=== PATIENT | female | born 1995 | race African-American/Black ===

== ENCOUNTER 2019-11-27 07:59 | Emergency (ER) | payer MEDICAID ==
[~2019-11-27] VITALS: Ht 170.2 cm; Wt 63.5 kg
[2019-11-27 08:01] VITALS: BP 136/85
--- NOTE | 2019-11-27 08:10 | NUR ---
ED Nurse Note: Patient presents to ER due to vaginal irritation, states "no pain" with yellow thick discharge with foul odor. Reports no urinary problem. Reports no fever or chills. Patient awake, alert, oriented x 4. Regular, unlabored breathing noted. Urine sample collected and sent. Bed in lowest position.
--- NOTE | 2019-11-27 08:15 | Emergency Room Report ---
History of Present Illness General Chief Complaint: Female Urogenital Problems Source: Patient Present Illness HPI Disclaimer: Please note that this report is being documented using DRAGON technology. This can lead to erroneous entry secondary to incorrect interpretation by the dictating instrument. HPI: 24-year-old female presents for evaluation of pelvic discomfort. Patient notes several days of generalized discomfort, burning with urination and thick white vaginal discharge. Reports recent sexual contact multiple partners though use barrier contraception in all occasions. Denies fever, chills, abdominal pain, nausea, vomiting, diarrhea or flank pain. LMP was October 17 PMH: Denies PSH: Denies Allergies: Denies Social Hx: Denies drug or alcohol abuse Allergies: Coded Allergies: No Known Allergies (Unverified , 11/27/19) COVID-19 Screening Contact w/high risk pt: No Recent Travel to affected area: No Experienced COVID-19 symptoms?: No COVID-19 Testing performed LINK TRAINER: No Patient History Last Menstrual Period: 10/20/19 Now: No Nursing Documentation-PMH Past Medical History: No History, Except For Review of Systems All Other Systems: limited Physical Exam Vital Signs Date Time Temp Pulse Resp B/P (MAP) Pulse Ox O2 Delivery O2 Flow Rate FiO2 11/27/19 08:01 98.6 71 19 136/85 (102) 97 Room Air General: Awake and alert, no acute distress HEENT: NC/AT. EOMI. Resp: Normal work of breathing Abdomen: Soft, nontender, nondistended : Normal-appearing external genitalia. Pain with speculum insertion and bimanual exam but no adnexal tenderness. Thick white vaginal discharge present Skin: Intact. No abrasions, laceration or rash over the exposed skin MSK: Normal tone and bulk. Moving all extremities. No obvious deformity. Neuro: Awake and alert. Mentating appropriately Medical Decision Making Diagnostic Impression: Primary Impression: Cervicitis Additional Impression: PID (acute pelvic inflammatory disease) ER Course 24-year-old female presents for evaluation of vaginal discharge and discomfort. Differential includes not limited to UTI, cervicitis, candidal infection, PID. Patient had significant tenderness on pelvic exam but no adnexal tenderness. She is afebrile and otherwise stable vital signs. hCG negative. Urinalysis shows positive leukocyte esterase and white blood cells but few bacteria many squamous cells. Wet mount does not show signs of BV, trichomonas or yeast. There are many white cells on wet mount as well. Patient be treated for PID with intramuscular ceftriaxone and oral doxycycline here and continued on doxycycline. She was instructed to abstain from sexual intercourse for a minimum of 2 weeks and have all her sexual partners tested as well. She is to follow-up with her TUB PULLER at her already scheduled appointment in 2 days. Discussed reasons to return to the emergency department. She understands and agrees with treatment plan. Laboratory Tests Test 11/27/19 08:07 Urine Color Pale yellow Urine Appearance Clear Urine pH 6.5 (4.5-8.0) Urine Specific [place] 1.015 (1.005-1.035) Urine Protein Negative (NEGATIVE) Urine Glucose (UA) Negative (NEGATIVE) Urine Ketones Negative (NEGATIVE) Urine Blood 1+ (NEGATIVE) H Urine Nitrite Negative (NEGATIVE) Urine Bilirubin Negative (NEGATIVE) Urine Urobilinogen 1 MG/DL (0.0-1.0) H Urine Leukocyte Esterase 3+ (NEGATIVE) H Urine RBC 0-2 /HPF (0 - 2) Urine WBC 5-10 /HPF (0 - 2) H Urine Squamous Epithelial Cells Moderate /LPF (NONE/OCC) H Urine Bacteria Few /HPF (NONE) Urine HCG, Qualitative Negative (NEGATIVE) Microbiology Date/Time Source Procedure Growth Status 11/27/19 08:20 Vaginal Wet Prep - Final Complete Last Vital Signs Date Time Temp Pulse Resp B/P (MAP) Pulse Ox O2 Delivery O2 Flow Rate FiO2 11/27/19 08:01 98.6 71 19 136/85 (102) 97 Room Air Disposition: HOME, SELF-CARE Condition: Stable Scripts Doxycycline Monohydrate* (DOXYCYCLINE MONOHYDRATE*) 100 Mg Capsule 100 MG ORAL TWICE A DAY for 14 Days, #28 CAP 0 Refills Prov: Jaime Woodruff MD 11/27/19 Jaime Woodruff MD Nov 27, 2019 08:15
--- NOTE | 2019-11-27 08:23 | NUR ---
ED Nurse Note: Pelvic exam performed by Dr. Woodruff. RN stayed in the room during the procedure. Patient tolerated the procedure with minimal discomfort. Provided privacy.
[2019-11-27 08:57] LABS: APPEARANCE,URINE CLEAR; BILIRUBIN, URINE NEGATIVE (NEGATIVE); COLOR,URINE PALE YELLOW; GLUCOSE, URINE (UA) NEGATIVE (NEGATIVE); KETONES,URINE NEGATIVE (NEGATIVE); LEUKOCYTE ESTERASE ,URINE 3+ (NEGATIVE); NITRITE,URINE NEGATIVE (NEGATIVE); PH,URINE 6.5 (4.5-8.0); PROTEIN,URINE NEGATIVE (NEGATIVE); UROBILINOGEN,URINE 1 MG/DL (0.0-1.0)
[2019-11-27] MEDS ORDERED: DOXYCYCLINE MO100 MG ORAL (09:13)
[2019-11-27] MEDS ORDERED: Lidocaine 1% MPF 10mg/ml 5ml INJ ONE (09:15)
[2019-11-27] MEDS ORDERED: Doxycycline Monohydrate 100mg ORAL ONE (09:15)
[2019-11-27 09:43] VITALS: BP 108/66
--- NOTE | 2019-11-27 09:43 | NUR ---
ED Nurse Note: Patient is being discharged from medical care. Rocephin IM injection administered to right gluteal eva and patient tolerated the procedure wtihout difficutly. Patient awake, alert, oriented x4. Regular, unlabored breathing noted. D/C instruction given and patient verbalized understanding of it. Patient ambulated out with steady gait with all her belongings.
[2019-11-30] MEDS ORDERED: DOXYCYCLINE MO100 MG ORAL (06:17)
== END 2019-11-27 09:43 | disposition home or self-care (01) ==
LOC: EMR 08:21
DX: N72 Inflammatory disease of cervix uteri (principal); N73.9 Female pelvic inflammatory disease, unspecified
CPT/HCPCS: 81003; 81025; 87210; 96372; J0696; Z7502; 99283

== ENCOUNTER 2020-01-01 09:04 | Emergency (ER) | payer MEDICAID ==
[~2020-01-01] VITALS: Ht 170.2 cm; Wt 59.0 kg
[~2020-01-01 09:04] MED LIST: DOXYCYCLINE MO100 MG ORAL
[2020-01-01 09:25] VITALS: BP 117/68
--- NOTE | 2020-01-01 09:26 | NUR ---
ED Nurse Note: patient walked in to for check up. pt has vaginal discharge and odor for 2-3 days. VSS at this time
[2020-01-01] MEDS ORDERED: Lidocaine 1% MPF 10mg/ml 5ml INJ ONE (09:30)
[2020-01-01] MEDS ORDERED: Azithromycin 250mg tab ORAL ONE (09:30)
--- NOTE | 2020-01-01 09:30 | NUR ---
ED Nurse Note: urine sent
[2020-01-01 10:14] VITALS: BP 117/68
--- NOTE | 2020-01-01 10:14 | NUR ---
ED Nurse Note: Pt cleared by health care Provider for discharge. DC instructions/prescription was given and explained to pt and verbalized understanding of teachings. All medical deviecs such as ID band removed. Pt is AAO x4, ambulatory and left with all personal belongings.
--- NOTE | 2020-01-01 13:34 | Emergency Room Report ---
History of Present Illness General Chief Complaint: Female Urogenital Problems Source: Patient Present Illness HPI 24-year-old female presents the ED for vaginal discharge. Started about 3 days ago. States she has had recent unprotected sex. Denies dysuria. Denies flank pain. Denies fevers or chills. No other aggravating relieving factors. Denies any other associated symptoms Allergies: Coded Allergies: No Known Allergies (Unverified , 11/27/19) COVID-19 Screening Contact w/high risk pt: No Recent Travel to affected area: No Experienced COVID-19 symptoms?: No COVID-19 Testing performed TAILOR MEN'S READY TO WEAR: No Patient History Past Medical History: none Past Surgical History: none Pertinent Family History: none Social History: Denies: smoking, alcohol use, drug use Now: No Immunizations: UTD Reviewed Nursing Documentation: PMH: Agreed; PSxH: Agreed Nursing Documentation-PMH Past Medical History: No Stated History Review of Systems All Other Systems: negative except mentioned in HPI Physical Exam Vital Signs Date Time Temp Pulse Resp B/P (MAP) Pulse Ox O2 Delivery O2 Flow Rate FiO2 01/01/20 09:11 97.5 82 18 117/68 (84) 98 Room Air Sp02 EP Interpretation: reviewed, normal General Appearance: no apparent distress, alert, GCS 15, non-toxic Head: normocephalic, atraumatic Eyes: bilateral eye normal inspection, bilateral eye PERRL ENT: hearing grossly normal, normal pharynx, no angioedema, normal voice Neck: full range of motion, supple/symm/no masses Respiratory: chest non-tender, lungs clear, normal breath sounds, speaking full sentences Cardiovascular #1: regular rate, rhythm, no edema Cardiovascular #2: 2+ carotid (R), 2+ carotid (L), 2+ radial (R), 2+ radial (L) , 2+ dorsalis pedis (R), 2+ dorsalis pedis (L) Gastrointestinal: normal bowel sounds, non tender, soft, non-distended, no guarding, no rebound Rectal: deferred Genitourinary: normal inspection, no CVA tenderness Musculoskeletal: back normal, normal range of motion, gait/station normal, non- tender Neurologic: alert, motor strength/tone normal, oriented x3, sensory intact, responsive, speech normal Psychiatric: judgement/insight normal, memory normal, mood/affect normal, no suicidal/homicidal ideation Reflexes: 3+ bicep (R), 3+ bicep (L), 3+ tricep (R), 3+ tricep (L), 3+ knee (R) , 3+ knee (L) Skin: no rash Lymphatic: no adenopathy Medical Decision Making Diagnostic Impression: Primary Impression: Cervicitis ER Course Hospital Course 24-year-old female presents ED with Vaginal discharge. History of unprotected sex Differential diagnoses include: trichimonas, gonorrhea, chlamydia Clinical course Patient placed on stretcher. After initial history physical exam reveals a young female in no acute distress. Physical exam unremarkable. I discussed findings with patient. Will treat clinically for gonorrhea/ Chlamydia Given azithromycin/Rocephin in ED. Safe for discharge with close outpatient follow-up. I will provide referrals Diagnosis - cervicitis Stable and discharged home. Instructed to followup with PMD. Return to ED if symptoms recur or worsen Last Vital Signs Date Time Temp Pulse Resp B/P (MAP) Pulse Ox O2 Delivery O2 Flow Rate FiO2 01/01/20 10:14 97.5 18 117/68 98 Room Air 01/01/20 09:11 82 Status: improved Disposition: HOME, SELF-CARE Condition: Stable Referrals: NOT CHOSEN IPA/,REFERRING (PCP) Fabricio Ibarra [facility]. [facility] Patient Instructions: Cervicitis, [id number] Magen Colon MD Jan 01, 2020 13:34
== END 2020-01-01 10:14 | disposition home or self-care (01) ==
LOC: EMR 09:45
DX: N72 Inflammatory disease of cervix uteri (principal)
CPT/HCPCS: 96372; J0696; Q0144; Z7502; 99283

== ENCOUNTER 2020-02-13 23:47 | Emergency (ER) | payer MEDICAID ==
[~2020-02-13] VITALS: Ht 170.2 cm; Wt 61.2 kg
--- NOTE | 2020-02-14 | NUR ---
ED Nurse Note: Walk-in patient with complaints of vomitting x 2 in the last 24 hours with complaints of LMP in December. Urine test ordered and urine sent down to lab.
[2020-02-14 00:33] VITALS: BP 119/72
[2020-02-14] MEDS ORDERED: Pyridoxine 50mg tab ORAL ONE (00:45)
[2020-02-14] MEDS ORDERED: Promethazine Plain 6.25mg/5ml ORAL ONE (00:45)
--- NOTE | 2020-02-14 01:38 | NUR ---
ED Nurse Note: Iv start at left AC, 20G, patent with blood return initiated. Blood specimen sent to lab. Urine specimen already down. Patient undressed and gowned. Patient provided with a warm blanket and relocated to more comfortable room pending ultrasound. Will continue to monitor for discharge.
--- NOTE | 2020-02-14 01:43 | Emergency Room Report ---
History of Present Illness General Chief Complaint: Vomiting Source: Patient Present Illness HPI 24-year-old -0-1-0 here with vomiting. Patient said her last period was approximately 6 weeks ago. She says that she began to have nausea and vomiting today, vomited 2 times nonbilious nonbloody. Denies fevers, chills, chest pain , palpitation, shortness of breath, back pain, abdominal pain, diarrhea, dysuria , hematuria, vaginal discharge, vaginal bleeding. Allergies: Coded Allergies: No Known Allergies (Unverified , 11/27/19) COVID-19 Screening Contact w/high risk pt: No Recent Travel to affected area: No Experienced COVID-19 symptoms?: No COVID-19 Testing performed TILER'S ASSISTANT: No Patient History Last Menstrual Period: january 05 2020 Nursing Documentation-[facility] Past Medical History: No History, Except For Review of Systems All Other Systems: negative except mentioned in HPI Physical Exam Vital Signs Date Time Temp Pulse Resp B/P (MAP) Pulse Ox O2 Delivery O2 Flow Rate FiO2 02/13/20 23:58 98.4 82 18 119/72 (88) 98 Room Air Sp02 EP Interpretation: reviewed, normal General Appearance: no apparent distress, alert, GCS 15, non-toxic Head: normocephalic, atraumatic Eyes: bilateral eye normal inspection, bilateral eye PERRL ENT: hearing grossly normal, normal pharynx, no angioedema, normal voice Neck: full range of motion, supple/symm/no masses Respiratory: chest non-tender, lungs clear, normal breath sounds, speaking full sentences Cardiovascular #1: regular rate, rhythm, no edema Cardiovascular #2: 2+ carotid (R), 2+ carotid (L), 2+ radial (R), 2+ radial (L) , 2+ dorsalis pedis (R), 2+ dorsalis pedis (L) Gastrointestinal: normal bowel sounds, non tender, soft, non-distended, no guarding, no rebound Rectal: deferred Genitourinary: normal inspection, no CVA tenderness Musculoskeletal: back normal, normal range of motion, calf tenderness, gait/ station normal, non-tender Neurologic: alert, motor strength/tone normal, sensory intact, responsive, speech normal Psychiatric: judgement/insight normal, memory normal, mood/affect normal, no suicidal/homicidal ideation Lymphatic: no adenopathy Medical Decision Making Diagnostic Impression: Primary Impression: Asymptomatic bacteriuria Additional Impression: ER Course Laboratory Tests Test 02/14/20 00:10 02/14/20 01:30 Urine Color Yellow Urine Appearance Clear Urine pH 7 (4.5-8.0) Urine Specific [place] 1.015 (1.005-1.035) Urine Protein Negative (NEGATIVE) Urine Glucose (UA) Negative (NEGATIVE) Urine Ketones 1+ (NEGATIVE) H Urine Blood Negative (NEGATIVE) Urine Nitrite Negative (NEGATIVE) Urine Bilirubin Negative (NEGATIVE) Urine Urobilinogen 4 MG/DL (0.0-1.0) H Urine Leukocyte Esterase 1+ (NEGATIVE) H Urine RBC 0-2 /HPF (0 - 2) Urine WBC 0-2 /HPF (0 - 2) Urine Squamous Epithelial Cells Few /LPF (NONE/OCC) Urine Bacteria Few /HPF (NONE) Urine HCG, Qualitative Positive (NEGATIVE) White Blood Count 9.9 K/UL (4.8-10.8) Red Blood Count 4.23 M/UL (4.20-5.40) Hemoglobin 13.2 G/DL (12.0-16.0) Hematocrit 38.7 % (37.0-47.0) Mean Corpuscular Volume 91 FL (80-99) Mean Corpuscular Hemoglobin 31.2 PG (27.0-31.0) H Mean Corpuscular Hemoglobin Concent 34.1 G/DL (32.0-36.0) Red Cell Distribution Width 11.4 % (11.6-14.8) L Platelet Count 242 K/UL (150-450) Mean Platelet Volume 8.5 FL (6.5-10.1) Neutrophils (%) (Auto) 61.8 % (45.0-75.0) Lymphocytes (%) (Auto) 25.3 % (20.0-45.0) Monocytes (%) (Auto) 9.1 % (1.0-10.0) Eosinophils (%) (Auto) 2.1 % (0.0-3.0) Basophils (%) (Auto) 1.7 % (0.0-2.0) Sodium Level 140 MMOL/L (136-145) Potassium Level 3.4 MMOL/L (3.5-5.1) L Chloride Level 104 MMOL/L (98-107) Carbon Dioxide Level 28 MMOL/L (21-32) Anion Gap 8 mmol/L (5-15) Blood Urea Nitrogen 15 mg/dL (7-18) Creatinine 0.7 MG/DL (0.55-1.30) Estimated Glomerular Filtration Rate > 60 mL/min (>60) Glucose Level 71 MG/DL (74-106) L Calcium Level 9.6 MG/DL (8.5-10.1) Total Bilirubin 0.4 MG/DL (0.2-1.0) Aspartate Amino Transferase (AST) 12 U/L (15-37) L Alanine Aminotransferase (ALT) 20 U/L (12-78) Alkaline Phosphatase 45 U/L (46-116) L Total Protein 7.9 G/DL (6.4-8.2) Albumin 4.1 G/DL (3.4-5.0) Globulin 3.8 g/dL Albumin/Globulin Ratio 1.1 (1.0-2.7) Lipase 235 U/L (73-393) Human Chorionic Gonadotropin, Quant 71139 mIU/mL (1-6) H Ultrasound transvaginal: Single IUP. No pelvic free fluid. Heart rate 113 bpm. 6 weeks 1 day gestation 24-year-old female last menstrual period 6 weeks ago, -0-1-0 here with vomiting. Patient was hemodynamically stable in the emergency department. She had a normal physical examination and said that her nausea and vomiting had resolved before she came into the ER. She had a positive test. She was told that this information. Labs largely unremarkable aside from some asymptomatic bacteriuria. The patient had a formal ultrasound performed which showed a single live IUP without any evidence of ectopic . Patient was given prescription for Keflex to treat asymptomatic bacteriuria. She has an COMMUNICATIONS PROFESSIONAL physician that she will follow-up with. Discharged in stable condition. Last Vital Signs Date Time Temp Pulse Resp B/P (MAP) Pulse Ox O2 Delivery O2 Flow Rate FiO2 02/14/20 00:33 82 18 Room Air 02/14/20 00:33 98.4 119/72 98 Scripts Cephalexin* (KEFLEX*) 500 Mg Capsule 500 MG ORAL EVERY 12 HOURS, #14 CAP 0 Refills Prov: Ayden Lester M.D. 02/14/20 Referrals: NOT CHOSEN IPA/,REFERRING (PCP) Ayden Lester M.D. Feb 14, 2020 01:43
[2020-02-14 01:44] LABS: BASOPHILS % (AUTO) 1.7 % (0.0-2.0); EOSINOPHILS % (AUTO) 2.1 % (0.0-3.0); HEMATOCRIT 38.7 % (37.0-47.0); HEMOGLOBIN 13.2 G/DL (12.0-16.0); LYMPHOCYTES % (AUTO) 25.3 % (20.0-45.0); MEAN CORPUSCULAR VOLUME 91 FL (80-99); MONOCYTES % (AUTO) 9.1 % (1.0-10.0); NEUTROPHILS % (AUTO) 61.8 % (45.0-75.0); PLATELET COUNT 242 K/UL (150-450); RED BLOOD COUNT 4.23 M/UL (4.20-5.40); RED CELL DISTRIBUTION WIDTH 11.4 % (11.6-14.8); WHITE BLOOD COUNT 9.9 K/UL (4.8-10.8)
[2020-02-14 01:53] LABS: ANION GAP 8 mmol/L (5-15); BLOOD UREA NITROGEN 15 mg/dL (7-18); CALCIUM 9.6 MG/DL (8.5-10.1); CARBON DIOXIDE 28 MMOL/L (21-32); CHLORIDE 104 MMOL/L (98-107); CREATININE 0.7 MG/DL (0.55-1.30); POTASSIUM 3.4 MMOL/L (3.5-5.1); SODIUM 140 MMOL/L (136-145)
[2020-02-14 01:58] LABS: ALANINE AMINOTRANSFERASE 20 U/L (12-78); ALBUMIN 4.1 G/DL (3.4-5.0); ALBUMIN/GLOBULIN RATIO 1.1 (1.0-2.7); ALKALINE PHOSPHATASE 45 U/L (46-116); ASPARTATE AMINO TRANSFERASE 12 U/L (15-37); BILIRUBIN,TOTAL 0.4 MG/DL (0.2-1.0)
[2020-02-14 02:07] LABS: APPEARANCE,URINE CLEAR; BILIRUBIN, URINE NEGATIVE (NEGATIVE); GLUCOSE, URINE (UA) NEGATIVE (NEGATIVE); KETONES,URINE 1+ (NEGATIVE); LEUKOCYTE ESTERASE ,URINE 1+ (NEGATIVE); NITRITE,URINE NEGATIVE (NEGATIVE); PH,URINE 7 (4.5-8.0); PROTEIN,URINE NEGATIVE (NEGATIVE); UROBILINOGEN,URINE 4 MG/DL (0.0-1.0)
[2020-02-14 02:09] LABS: COLOR,URINE YELLOW
[2020-02-14] MEDS ORDERED: CEPHALEXIN500 MG ORAL (03:16)
--- NOTE | 2020-02-14 03:34 | NUR ---
ER DISCHARGE NOTE: Patient is cleared to be discharged per ERMD, pt is aox4, on room air, with stable vital signs. pt was given dc and prescription instructions, pt was able to verbalize understanding, pt id band and iv site removed without complications. pt is able to ambulate with steady gait. pt took all belongings.
[2020-02-14 03:35] VITALS: BP 119/72
--- NOTE | 2020-02-14 03:54 | Diagnostic Imaging Report ---
EXAM: US First Trimester , Transabdominal and Transvaginal CLINICAL HISTORY: ABD PAIN TECHNIQUE: Real-time transabdominal and transvaginal obstetrical ultrasound of the maternal pelvis and a first trimester with image documentation. Transvaginal imaging was used for better evaluation of the fetus and adnexa. COMPARISON: No relevant prior studies available. FINDINGS: Gestation: A chorionic sac with yolk sac, embryonic pole, and a heart rate of 113 bpm is seen within the uterus. The estimated gestational age is 6 weeks and 1 day. Placenta/amniotic fluid: Cannot be adequately evaluated due to the early gestational age. Uterus/cervix: Unremarkable. No myometrial mass. Ovaries: An approximately 2.4 x 2.4 x 3.0 cm hypoechoic lesion is suspected in the right ovary which is likely related to a hemorrhagic corpus luteal cyst. The left ovary is unremarkable and demonstrates vascular flow. The left ovary measures 4.0 x 1.8 x 2.0 cm. Free fluid: No free fluid. IMPRESSION: 1. A chorionic sac with yolk sac, embryonic pole, and a heart rate of 113 bpm is seen within the uterus. The estimated gestational age is 6 weeks and 1 day. 2. An approximately 2.4 x 2.4 x 3.0 cm hypoechoic lesion is suspected in the right ovary which is likely related to a hemorrhagic corpus luteal cyst.
== END 2020-02-14 03:34 | disposition home or self-care (01) ==
LOC: EMR 02-14 00:35
DX: O21.9 Vomiting of pregnancy, unspecified (principal); Z3A.01 Less than 8 weeks gestation of pregnancy; R82.71 Bacteriuria; O26.891 Other specified pregnancy related conditions, first trimester
CPT/HCPCS: 36415; 76801; 76817; 80053; 81003; 81025; 83690; 84702; 85025; Z7502; 99284

== ENCOUNTER 2020-04-03 04:28 | Emergency (ER) | payer MEDICAID ==
[~2020-04-03] VITALS: Ht 172.7 cm; Wt 61.2 kg
[~2020-04-03 04:28] MED LIST changes: +CEPHALEXIN500 MG ORAL
[2020-04-03 04:45] VITALS: BP 121/72
--- NOTE | 2020-04-03 04:45 | NUR ---
ED Nurse Note: Patient walked into ED for concern of STD. She states she had unprotected sex within the last 24 hours. She does not have any vaginal or urinary symptoms. AAOX4, VSS.
--- NOTE | 2020-04-03 04:49 | Emergency Room Report ---
History of Present Illness General Chief Complaint: General Complaint Source: Patient Present Illness HPI This a 24-year-old female with no past medical history. She presents with chief complaint of concerning for STD. Patient was having intercourse tonight and she said the condom broke. She does not know if her partner has any history of STDs or any discharge. She was concerned today so she came in. She denies any symptoms. No discharge or burning on urination. Allergies: Coded Allergies: No Known Allergies (Unverified , 11/27/19) COVID-19 Screening Contact w/high risk pt: No Recent Travel to affected area: No Experienced COVID-19 symptoms?: No COVID-19 Testing performed PLASTICS PATTERNMAKER: No Patient History Past Medical History: see triage record, old chart reviewed Past Surgical History: none Pertinent Family History: none Social History: Denies: smoking Last Menstrual Period: 02/25/20 Now: No Immunizations: other Reviewed Nursing Documentation: PMH: Agreed; PSxH: Agreed Nursing Documentation-PMH Past Medical History: No History, Except For Review of Systems Eye: Denies: eye pain, blurred vision ENT: Denies: ear pain, nose congestion, throat swelling Respiratory: Denies: cough, shortness of breath Cardiovascular: Denies: chest pain, palpitations Gastrointestinal: Denies: abdominal pain, diarrhea, nausea, vomiting Musculoskeletal: Denies: back pain, joint pain Skin: Denies: rash Neurological: Denies: headache, numbness Endocrine: Denies: increased thirst, increased urine Hematologic/Lymphatic: Denies: easy bruising All Other Systems: negative except mentioned in HPI Physical Exam Vital Signs Date Time Temp Pulse Resp B/P (MAP) Pulse Ox O2 Delivery O2 Flow Rate FiO2 04/03/20 04:31 97.5 84 18 121/72 (88) 98 Room Air Vitals normal Sp02 EP Interpretation: reviewed, normal General Appearance: well appearing, no apparent distress, alert Head: normocephalic, atraumatic Eyes: bilateral eye PERRL, bilateral eye EOMI ENT: hearing grossly normal, normal pharynx Neck: full range of motion, supple, no meningismus Respiratory: chest non-tender, lungs clear, normal breath sounds Cardiovascular #1: regular rate, rhythm, no murmur Gastrointestinal: normal bowel sounds, non tender, no mass, no organomegaly, no bruit, non-distended Musculoskeletal: back normal, normal range of motion, gait/station normal Psychiatric: mood/affect normal Medical Decision Making Diagnostic Impression: Primary Impression: Concern about STD in female without diagnosis ER Course Patient presents with concern for STD. She has no diagnosis. We will go ahead and treat for gonorrhea and chlamydia. Last Vital Signs Date Time Temp Pulse Resp B/P (MAP) Pulse Ox O2 Delivery O2 Flow Rate FiO2 04/03/20 04:31 97.5 84 18 121/72 (88) 98 Room Air Status: unchanged Disposition: HOME, SELF-CARE Condition: Stable Additional Instructions: Follow-up with In 7 days. Recommend outpatient testing for HIV, hepatitis, syphilis and other STDs. This can be done anonymously. Return if symptoms worsen. Marcus Xavier MD Apr 03, 2020 04:49
[2020-04-03 05:00] VITALS: BP 119/74
[2020-04-03] MEDS ORDERED: Azithromycin 250mg tab ORAL ONE (05:00)
[2020-04-03] MEDS ORDERED: Lidocaine 1% MPF 10mg/ml 5ml INJ ONE (05:00)
--- NOTE | 2020-04-03 05:00 | NUR ---
ER DISCHARGE NOTE: Patient is cleared to be discharged per ERMD, pt is aox4, on room air, with stable vital signs. pt was given dc and follow up instructions, pt was able to verbalize understanding, pt id band removed. pt is able to ambulate with steady gait. pt took all belongings.
== END 2020-04-03 05:00 | disposition home or self-care (01) ==
LOC: EMR 04:52
DX: Z20.2 Contact with and (suspected) exposure to infections with a predominantly sexual mode of transmission (principal)
CPT/HCPCS: 96372; J0696; Q0144; Z7502; 99283

== ENCOUNTER 2020-04-29 00:28 | Emergency (ER) | payer MEDICAID ==
[~2020-04-29] VITALS: Ht 172.7 cm; Wt 61.2 kg
[2020-04-29 00:40] VITALS: BP 112/70
[2020-04-29] MEDS ORDERED: METRONIDAZOLE500 MG ORAL (01:21)
[2020-04-29] MEDS ORDERED: DOXYCYCLINE MO100 MG ORAL (01:21)
--- NOTE | 2020-04-29 01:26 | Emergency Room Report ---
History of Present Illness General Chief Complaint: Female Urogenital Problems Source: Patient Present Illness HPI Patient is a 24-year-old female presents for increased recent exposure to possible sexual transmitted disease. Patient states that she was involved with a sexual partner and was informed that she may been exposed to sexually transmitted infection. Had reported recent intercourse and states condom broke. Denies any fever. Denies any pelvic pain. Denies being . Allergies: Coded Allergies: No Known Allergies (Unverified , 11/27/19) COVID-19 Screening Contact w/high risk pt: No Recent Travel to affected area: No Experienced COVID-19 symptoms?: No COVID-19 Testing performed DEPLOYMENT ENGINEER: No Patient History Past Medical History: see triage record Last Menstrual Period: april 2020 : 3 Para: 1 Reviewed Nursing Documentation: PMH: Agreed; PSxH: Agreed Nursing Documentation-PMH Past Medical History: No History, Except For Review of Systems All Other Systems: negative except mentioned in HPI Physical Exam Vital Signs Date Time Temp Pulse Resp B/P (MAP) Pulse Ox O2 Delivery O2 Flow Rate FiO2 04/29/20 00:37 97.7 73 15 112/70 (84) 96 Room Air General Appearance: well appearing, no apparent distress, alert, GCS 15 Head: normocephalic, atraumatic ENT: hearing grossly normal, normal voice Neck: full range of motion, supple Respiratory: normal inspection, no respiratory distress, speaking full sentences Cardiovascular #1: normal inspection Gastrointestinal: normal inspection Musculoskeletal: no calf tenderness Neurologic: alert, motor strength/tone normal, evaluation engineer III-XII nml as tested, oriented x3, normal gait Psychiatric: normal inspection, mood/affect normal Skin: no rash Medical Decision Making Diagnostic Impression: Primary Impression: Sexually transmitted disease exposure ER Course Patient presented for STD exposure. Differential diagnosis include was not limited to sexual transmitted infection, , among others. Patient has a benign exam and does not appear to require any imaging or laboratory testing at this time. Patient is empirically treated with Rocephin and given prescription for Flagyl as well as doxycycline. She is advised to follow-up with her primary care physician for further STI testing. She advised to return if worse. This medical record is generated with [employer] press puller software. There may be some press puller discrepancies related to use of this software Last Vital Signs Date Time Temp Pulse Resp B/P (MAP) Pulse Ox O2 Delivery O2 Flow Rate FiO2 04/29/20 00:37 97.7 73 15 112/70 (84) 96 Room Air Disposition: HOME, SELF-CARE Condition: Stable Scripts Metronidazole* (FLAGYL*) 500 Mg Tablet 500 MG ORAL BID for 7 Days, #14 TAB Prov: Aaron Aguayo MD 04/29/20 Doxycycline Monohydrate* (DOXYCYCLINE MONOHYDRATE*) 100 Mg Capsule 100 MG ORAL Q12H, #14 CAP 0 Refills Prov: Aaron Aguayo MD 04/29/20 Referrals: NON PHYSICIAN (PCP) Patient Instructions: Sexually Transmitted Disease, [id number] Additional Instructions: Follow up with your doctor for STI testing. Return if any concerns. Aaron Aguayo MD Apr 29, 2020 01:26
[2020-04-29] MEDS ORDERED: Lidocaine 1% MPF 10mg/ml 5ml INJ ONE (01:30)
[2020-04-29] MEDS ORDERED: metroNIDAZOLE 500mg tab ORAL ONE (01:30)
[2020-04-29 01:35] VITALS: BP 120/72
== END 2020-04-29 01:35 | disposition home or self-care (01) ==
LOC: EMR 00:54
DX: Z20.2 Contact with and (suspected) exposure to infections with a predominantly sexual mode of transmission (principal)
CPT/HCPCS: 81025; 96372; J0696; Z7502; 99283